=== PATIENT | female | born 1985 | race Caucasian/White ===

== ENCOUNTER 2023-02-24 19:27 | Emergency (ER) | payer OTHER ==
[~2023-02-24] VITALS: Ht 177.8 cm; Wt 65.8 kg
[2023-02-24] MEDS ORDERED: LIDOCAINE 5% (PATCH) 1 EA PATCH TP SCH (20:30)
[2023-02-24] MEDS ORDERED: CYCLOBENZAPRINE 10 MG TABLET PO ONE (20:30)
[2023-02-24] MEDS ORDERED: KETOROLAC TROMETHAMINE INJ 30 MG/ML VIAL IM ONE (20:30)
[2023-02-24] MEDS ORDERED: ACETAMINOPHEN ES 500 MG TABLET PO ONE (20:30)
[2023-02-24] MEDS ORDERED: KETOROLAC TROMETHAMINE INJ 30 MG/ML VIAL ONE (20:36)
[2023-02-24] MEDS ORDERED: LIDOCAINE 5% (PATCH) 1 EA PATCH TP ONE (20:36)
[2023-02-24] MEDS ORDERED: ACETAMINOPHEN ES 500 MG TABLET ONE (20:37)
[2023-02-24] MEDS ORDERED: CYCLOBENZAPRINE 10 MG TABLET ONE (20:37)
[2023-02-24] MEDS ORDERED: IBUP-1955 PO (22:41)
[2023-02-24] MEDS ORDERED: CYCL10TA9 PO (22:41)
[2023-02-24] MEDS ORDERED: PRED50TA PO (22:41)
[2023-02-24 22:57] VITALS: BP 116/77; TEMP 98.2; O2SAT 98
[2023-02-24] MEDS ORDERED: predniSONE 50 MG TABLET PO ONE (23:00)
[2023-02-24] MEDS ORDERED: predniSONE 20 MG TABLET ONE (23:23)
== END 2023-02-24 23:12 | disposition home or self-care (01) ==
LOC: ER 19:31
DX: M54.50 Low back pain, unspecified (principal)
CPT/HCPCS: 99285; 72131; 96372; J7512; J1885